=== PATIENT | female | born 1985 ===

== ENCOUNTER → 2019-02-13 | Outpatient (CLI) | payer OTHER ==
[~2019-02-13] MED LIST: BUPR150ER; CIPR500; ORLI120; Prinivil10 MG
== END | disposition home or self-care (01) ==
LOC: LAB EV 18:26 → LAB SHORT 18:26
DX: N39.0 Urinary tract infection, site not specified (principal)
CPT/HCPCS: 87077; 87086; 87186

== ENCOUNTER → 2021-12-27 | Outpatient (CLI) | payer OTHER ==
[2021-12-31 03:09] LABS: HSV-1 DNA Negative (Negative); HSV-2 DNA Positive (Negative)
== END | disposition home or self-care (01) ==
LOC: LAB SHORT 10:19 → LAB 10:19
PROVIDERS: Nurse Practitioner
DX: N76.0 Acute vaginitis (principal)
CPT/HCPCS: 87070; 87205; 87529

== ENCOUNTER → 2022-02-17 | Outpatient (CLI) | payer OTHER ==
[2022-02-18 13:58] LABS: Candida species (DNA Probe) Negative (NEGATIVE); G. vaginalis (DNA Probe) Negative (NEGATIVE); T. vaginalis (DNA Probe) Negative (NEGATIVE)
== END | disposition home or self-care (01) ==
LOC: LAB SHORT 11:50
PROVIDERS: Family Medicine
DX: N94.89 Other specified conditions associated with female genital organs and menstrual cycle (principal)
CPT/HCPCS: 87086; 87480; 87510; 87660